=== PATIENT | female | born 1960 | race Two or more races ===

== ENCOUNTER 2017-10-17 12:04 | Emergency (ER) | payer OTHER ==
[~2017-10-17] VITALS: Ht 162.6 cm; Wt 63.5 kg
[2017-10-17 12:33] VITALS: BP 146/89
--- NOTE | 2017-10-17 12:33 | NUR ---
PT TO ED ROOM 02. INTERMITTENT HEADACHES X 3 YEARS, WORSENING IN PAST 4 DAYS. GENERALIZED WEAKNESS. HIGH BLOOD PRESSURE. A/A/O. VS WNL. SIDE RAIS LUP. HOB ELEVATED. CONNECTED TO MONITOR. AWAITING EVALUATION BY ER PROVIDER.
--- NOTE | 2017-10-17 13:00 | NUR ---
Patient does not wish to proceed with medical care recommended by FARSHAD WELCH. Patient given information related to possible complications, up to and including , which could occur as a result of leaving the hospital at this time. Patient verbalizes understanding of risks involved due to leaving against medical advice. Patient has signed AMA form. Addendum: 10/17/17 at 1301 by TORREY Patient REFUSED TO sign AMA form.
== END 2017-10-17 13:03 | disposition left against medical advice (07) ==
LOC: ER 12:06
DX: R51 Headache (principal); I10 Essential (primary) hypertension; E03.9 Hypothyroidism, unspecified; Z86.73 Personal history of transient ischemic attack (TIA), and cerebral infarction without residual deficits
CPT/HCPCS: A4606; Z7502; Z7610